=== PATIENT | female | born 1970 | race Caucasian/White ===

== ENCOUNTER 2025-08-26 06:31 | Day surgery (SDC) | payer OTHER, SELFPAY | END 2025-08-26 12:03 | disposition home or self-care (01) | LOC: GI 06:31 | PROVIDERS: ATTENDING PHYSICIAN Internal Medicine | DX: Z12.11 Encounter for screening for malignant neoplasm of colon (principal); D12.0 Benign neoplasm of cecum; D12.8 Benign neoplasm of rectum | CPT/HCPCS: 45385; 45380; 88305 ==